=== PATIENT | female | born 1965 | race Caucasian/White ===

== ENCOUNTER 2020-11-14 17:00 | Outpatient (CLI) | payer BC | END 2020-11-14 17:01 | disposition home or self-care (01) | LOC: SLEEPLAB 17:00 | PROVIDERS: ATTEND Family Medicine | DX: G47.33 Obstructive sleep apnea (adult) (pediatric) (principal); R53.83 Other fatigue; F41.9 Anxiety disorder, unspecified; G31.84 Mild cognitive impairment of uncertain or unknown etiology; R06.83 Snoring; G47.00 Insomnia, unspecified; I10 Essential (primary) hypertension; E66.9 Obesity, unspecified; Z68.41 Body mass index [BMI] 40.0-44.9, adult | CPT/HCPCS: 95806 ==

== ENCOUNTER 2021-12-25 19:30 | Outpatient (CLI) | payer BC | END 2021-12-25 19:31 | disposition home or self-care (01) | LOC: SLEEPLAB 19:30 | PROVIDERS: ATTEND Family Medicine | DX: G47.33 Obstructive sleep apnea (adult) (pediatric) (principal); R53.83 Other fatigue; J44.9 Chronic obstructive pulmonary disease, unspecified; I10 Essential (primary) hypertension; E11.9 Type 2 diabetes mellitus without complications; G47.10 Hypersomnia, unspecified; E66.9 Obesity, unspecified; Z68.41 Body mass index [BMI] 40.0-44.9, adult | CPT/HCPCS: 95811 ==